=== PATIENT | male | born 1970 | race Caucasian/White ===

== ENCOUNTER 2017-09-13 12:12 | Day surgery (SDC) | payer OTHER, SELFPAY ==
--- NOTE | 2017-09-07 11:51 | EKG12_ITS ---
Test Reason : PRE OP Blood Pressure : / mmHG Vent. Rate : 082 BPM Atrial Rate : 082 BPM P-R Int : 162 ms QRS Dur : 076 ms QT Int : 330 ms P-R-T Axes : 008 036 030 degrees QTc Int : 385 ms Normal sinus rhythm Normal ECG Confirmed by LETTY MONTEZ ([id number]), greeting card editor RICO PARTIDA ([id number]) on 09/09/2017 12:10:44 PM Referred By: Devon Escobar Confirmed By:LETTY MONTEZ
[2017-09-07 12:49] LABS: Hemoglobin A1c 7.3 % (4.2-6.3)
[2017-09-07 13:11] LABS: Anion Gap 9 (5-15); BUN 8 mg/dL (7-18); BUN/Creat Ratio 8.3 RATIO (10-20); Calcium,Total 10.2 mg/dL (8.5-10.1); Chloride 110 mmol/L (98-107); Creatinine, Serum 0.96 mg/dL (0.70-1.30); EST Glomerular Filtration Rate 89 mL/min (>60); Est Glom Filt Rate - Afr Amer 108 mL/min (>60); Glucose 117 mg/dL (70-110); Sodium Level 144 mmol/L (136-145)
[2017-09-13] VITALS (8 sets, daily range): BP systolic 120–139; BP diastolic 79–87; PULSE 80–98; RESP 12–18; TEMP 36.6–36.7; O2SAT 92–98
[2017-09-13 13:01] LABS: Bedside Glucose 91 mg/dL (70-110)
--- NOTE | 2017-09-13 13:30 | HERN_PTH ---
PATIENT: GENNY CORDOVA LOC: [facility] – [place] U#:[id number] AGE/SX: 47/M ROOM: RE09/13/[address]: Dr. Devon Escobar MD : [id number] BED: DIS: 09/13/2017 SPEC #: [id number] RECD: 09/14/17 08:17 STATUS: JASVIR OTTO #: [id number] VITALY: 09/13/17 13:[address]: Devon Escobar DEPT: SURGICAL PATHOLOGY RECD BY: Davion Gill ENTERED: 09/14/17 12:31 SP TYPE: Hernia OTHR DR: Dr. Yong Correa DO Tissues: HERNIA Procedures: Surgery Specimen Level II HEADER OPERATION: Laparoscopic ventral hernia repair with mesh PRE-OP DIAGNOSIS: Ventral hernia TISSUE SUBMITTED: Hernia sac MICROSCOPIC DIAGNOSIS Hernia sac: A piece of adipose tissue, clinically hernia sac. SJ:cassandra 09/15/17 MICROSCOPIC DESCRIPTION Slides are reviewed. GROSS DESCRIPTION Received in fixative is one container labeled with the patient's name and designated hernia sac. The specimen consists of an irregular piece of yellow adipose tissue measuring 8.5 x 3.5 x 2 cm. Sections do not reveal any mass lesion. Plant Health Care Technician sections are submitted in one cassette. / SJ:cassandra 09/14/17 TC:5 CPT: 97331
[2017-09-13] MEDS: Cefazolin 2 GM in 0.9% Normal Saline 100 ML IV (14:30)
[2017-09-13] MEDS: Bupivacaine Mpf 0.5% 30 ML VIAL (15:31)
--- NOTE | 2017-09-13 15:39 | OP.PCM_ITS ---
Report of Operation Date of Procedure: 09/13/17 Pre-Operative Diagnosis: ventral hernia Post-Operative Diagnosis: ventral hernia - 1cm defect Surgery/Procedure Performed:: laparoscopic ventral hernia repair with mesh compensation advisor: None Type of Anesthesia:: General Anesthesiologist: Alfred James - ASA2 Specimen's removed: hernia sac Estimated Blood Loss (mL): <10 Fluids Replaced: 700 Description of Procedure: The patient was brought to the operating suite. Sign in was performed verifying patient, site, procedure, position, and DVT prophylaxis with SCDs. Patient received 2 g Ancef antibiotic prophylaxis. prior to the patient and brought to the operative suite, the hernia which was approximately 6 cm superior to the umbilicus was marked on the patient's skin and the patient concurred this was where the hernia was located. Following induction of general anesthetic, the patient?s abdomen was prepped and draped in the usual fashion. Timeout was performed verifying patient, site , position. Local anesthetic was injected . A linear incision was made and dissection carried down at the over the ventral hernia defect. The hernia sac and the hernia sac was opened . 2 stay sutures were placed and the Rollins trochar was inserted and secured with the stay sutures. 3- 5mm warts were placed in the far right lateral position There was omentum adherent within the hernia sac. This was dissected off the hernia sac and then dissected off the fascial defect margin . The hernia sac was dissected completely free from the subcutaneous fat down to the level of the fascial defect . Dissection of the hernia sac at the def rect level and then excess surrounding preperitoneal fat was dissected to allow flat placement of the intra-abdominal mesh. The falciform ligament was also divided to prevent tenting. The hernia sac tissue was excised and sent to pathology. A ventralex ST large cervical hernia mesh placed intra-abdominally. A Prolene suture was placed through the lower aspect of the mesh brought up with a Granee needle to just below the ventral fascial defect. Prolene sutures were placed transfixing the fascia at 12 , 6 , 3 and 9:00 using a Granee needle . The mesh was then tacked using a secure strap tacker around the outer rim of the mesh and then in multiple locations in the inner mesh Subcutaneous fat was closed with interrupted 3-0 Vicryl suture. Skin was closed with a running and inturrepted 4-0 Monocryl subcuticular sutures. Steri- Strips and bandages were applied. The patient was brought to recovery room in stable condition. Grafts/Implants Used: Ventralex ST [id number] Lot [id number] exp 01/10/2019 - securestrap STRAP 25 l - Admit VTE Documentation VTE Present on Admission: No VTE Mechan Device Prophylaxis: SCD's VTE Pharm Prophylaxis ordered?: No
--- NOTE | 2017-09-13 15:51 | DCINST_ITS ---
Discharge Diet: Light diet - advance as tolerated Discharge Activity: Return to Normal Activity, May Drive - when you are no longer taking narcotic pain medications., May Shower - with the bandage in place 1-2 days after surgery. Lifting Restrictions: 20 pounds for 8 weeks. Additional Activity Instructions:: Climbing stairs is fine, walking is encouraged. Sitting in bed may be uncomfortable. Sitting up using your lateral muscles (sitting up sideways) is usually more comfortable. Do not drive, work heavy equipment of sign legal documents for 24 hours. If your hernia repair was an ingunial repair, you may have scrotal swelling, an ice pack and/or athletic support can provide more comfort. Pain medications may cause nausea, you should typically eat light foods as you take your pain medications. Pain medications may also cause constipation. If you have difficulty with this, discuss with your doctor. Call your doctor if your incision/area has: Continuous Slow Oozing, Sudden Increased Bleeding, Increased Pain/ Swelling, Increased Redness, Foul Smelling Discharge Call your doctor if you observe: Fever of 101 or Higher Suture Line Care: Avoid Pulling/Pushing, Avoid Pinching/Bending Additional Dressing/Incision Instructions:: Leave the operative bandage on for 2 -3 days. When you remove the bandage, leave the steri-strips on place until your follow up appointment or they fall off. Allergies/Adverse Reactions: Allergies No Known Allergies Allergy (Verified 09/07/17 09:07) Medications to take at Discharge Esomeprazole Mag Trihydrate [Nexium] 20 mg PO DAILY 07/16/14 Lisinopril [Zestril] 10 mg PO DAILY 07/19/14 Metformin HCl [Glucophage] 1,000 mg PO BIDCM 07/19/14 Cholecalciferol (Vitamin D3) [Vitamin D3] 4,000 unit PO DAILY 09/07/17 Oxycodone [Oxyir] 5 mg PO Q4H PRN PRN #16 tab 09/13/17 The following prescriptions were given: Oxycodone [Oxyir] 5 mg PO Q4H PRN PRN #16 tab PRN Reason: Severe Pain (6-10/10) Primary Care Physician: Yong Correa DO [Primary Care Provider] - Please Follow Up With: Devon Escobar MD - [phone] When: Plan to have a follow up appointment in 7 days. Call to schedule.
[2017-09-13 16:06] LABS: Bedside Glucose 114 mg/dL (70-110)
[2017-09-13] MEDS: Ibuprofen 400 MG Tablet PO (17:30)
[2017-09-13] MEDS: oxyCODONE 5 MG Tablet PO (17:30)
[2017-09-13] MEDS: Ondansetron 4 MG/2 ML Vial IM (17:30)
== END 2017-09-13 18:17 | disposition home or self-care (01) ==
LOC: SDC 12:12 → AC 12:13
PROVIDERS: Family Provider Student in an Organized Health Care Education/Training Program; PCP Student in an Organized Health Care Education/Training Program; Visit Provider Surgery
PROC: 0WQF4ZZ Repair Abdominal Wall, Percutaneous Endoscopic Approach (ICD-10-PCS; CPT 49652; principal; 2017-09-13 13:15)
DX: K43.9 Ventral hernia without obstruction or gangrene (principal); K21.9 Gastro-esophageal reflux disease without esophagitis; E11.9 Type 2 diabetes mellitus without complications; I10 Essential (primary) hypertension; H53.50 Unspecified color vision deficiencies; Z87.442 Personal history of urinary calculi; Z79.4 Long term (current) use of insulin; Z79.51 Long term (current) use of inhaled steroids; Z79.899 Other long term (current) drug therapy; Z87.891 Personal history of nicotine dependence
CPT/HCPCS: 49652; 36415; 80048; 82962; 83036; 88302; 93005; J7120; C1781; J2405

== ENCOUNTER 2018-12-07 20:18 | Emergency (ER) | payer OTHER, SELFPAY ==
[2018-12-07 20:19] VITALS: BP 134/77; PULSE 102; RESP 17; O2SAT 95
[2018-12-07 20:20] VITALS: BP 134/77; PULSE 106; RESP 17; TEMP 36.7; O2SAT 95; BMI 32.4
--- NOTE | 2018-12-07 20:44 | RAD_ITS ---
STUDY: X-RAY - RIGHT SHOULDER REASON FOR EXAM: Male, 48 years old. Fall on concrete. TECHNIQUE: 4 view(s) of the shoulder. COMPARISON: None. FINDINGS: Normal glenohumeral articulation. Normal acromioclavicular joint. Normal acromion. Normal humeral head and visualized proximal humerus. The soft tissue structures are unremarkable. Normal visualized pulmonary apex. RAD/Shoulder min 2 Views IMPRESSION: Normal x-ray examination of the shoulder. Electronically Signed: Alexandra Buchanan MD at 21:19 EDT Tel , Service support ,
--- NOTE | 2018-12-07 22:37 | ED.DCSUM_ITS ---
History of Present Illness Chief Complaint: Upper Extremity Injury Narrative: Patient presenting secondary to a fall and shoulder injury. Patient reports that yesterday at work he was carrying something and tripped and struck his shoulder against a palate. He reports that he initially had minimal pain, but has had gradual onset of worsening pain. Pain is sharp and nonradiating. Is worse with range of motion of the shoulder. Denies any numbness or weakness. Denies any prior injuries to the shoulder. Review of systems otherwise negative. Past Medical History - Allergies and Home Meds Allergies/Adverse Reactions: Allergies Byatmcl-Rlk-Txo Reductase Inhibitor Adverse Reaction (Verified 12/07/18 20:19) Pain in joints Primary Care Physician: [facility] [GROUP OF PHYSICIANS] - As Needed Smoking Status: Never smoker Review of Systems Musculoskeletal: Reports: - - Right shoulder pain Skin: Denies: Wounds Neurological: Denies: Weakness, Parasthesia Hematologic: Denies: Easy bruising, Easy bleeding Physical Exam Vital Signs/Narrative: Vital Signs Temp Pulse Resp BP Pulse Ox 12/07/18 20:20 98.1 F 106 H 17 134/77 H 95 12/07/18 20:19 102 H 17 134/77 H 95 General: Well nourished, Well developed Head: Normocephalic Eyes: EOMI Neck: Full ROM Cardiovascular: Regular rate, Regular rhythm, - - 2+ radial pulses bilaterally symmetric Respiratory: No distress Back: Nontender Extremeties: Right upper extremity exam shows limited range of motion of the right shoulder secondary to pain. There is pain diffusely with palpation without any localization. No evidence of joint effusion warmth or erythema. Patient has pain with stressing of his rotator cuff specifically the subscapularis muscle, but no evidence of laxity. Normal distal sensation and pulses. Skin: Normal color, No rash Neurological: Alert, Oriented x3 Psychological: Normal affect Diagnostic/Tx/Re-eval - Medical Decision Making Patient presented secondary to a shoulder injury. X-rays were obtained which were found to be negative. Patient's mechanism really seems more consistent with a contusion at this point. Patient was recommended vnxv-snu-xgwskew remedies such as Tylenol ibuprofen and ice. [facility] Disposition: Home ED Disposition - Plan for ED Patient: Disposition: Home or Assisted Living Diagnosis: Contusion of right shoulder Instructions: ED Contusion Upper Ext [facility] [GROUP OF PHYSICIANS] - As Needed
[2018-12-07 22:43] VITALS: BP 148/90; PULSE 90; RESP 15; O2SAT 98
== END 2018-12-07 22:44 | disposition home or self-care (01) ==
PROVIDERS: Emergency Provider Emergency Medicine; Family Provider Student in an Organized Health Care Education/Training Program; PCP Student in an Organized Health Care Education/Training Program
DX: S40.011A Contusion of right shoulder, initial encounter (principal); W18.40XA Slipping, tripping and stumbling without falling, unspecified, initial encounter; Y93.01 Activity, walking, marching and hiking; Y92.89 Other specified places as the place of occurrence of the external cause; Y99.0 Civilian activity done for income or pay
CPT/HCPCS: 73030; 99282

== ENCOUNTER → 2019-01-25 | Outpatient (CLI) | payer OTHER, SELFPAY ==
[2019-01-12 15:49] VITALS: BMI 32.4
--- NOTE | 2019-01-25 17:25 | MRI_ITS ---
STUDY: MRI RIGHT SHOULDER REASON FOR EXAM: Shoulder pain since 12/06/2018, fall. TECHNIQUE: Standardized fat and water weighted pulse sequences were obtained in all 3 orthogonal planes. COMPARISON: Radiographs 12/07/2018. FINDINGS: There is mild supraspinatus tendinosis and a small full-thickness tear of the anterior supraspinatus tendon (T2 sagittal image 9; T2 axial image 9; T2 coronal image 16) measuring approximately 0.4 cm in length and width. Normal infraspinatus tendon. There is an undersurface partial-thickness tear of the distal superior fibers of the subscapularis tendon with medial subluxation of the proximal extracapsular long biceps tendon (proton-density axial image 15). Normal teres minor tendon. Normal supraspinatus muscle. Normal infraspinatus muscle. Normal subscapularis muscle. Normal teres minor muscle. There is a small glenohumeral joint effusion with fluid extending into the bicipital tendon sheath. Normal humeral head and visualized proximal humerus. Normal biceps labral complex. Normal labrum. Normal capsulo- ligamentous complex. Normal acromioclavicular articulation. There is a Type II morphology (curved), with a neutral orientation. There is a small volume of subacromial-subdeltoid bursal fluid. Normal visualized coracohumeral and coracoacromial ligaments. Normal deltoid muscle. Normal trapezius muscle. MRI/Upper Ext Joint Only(Routine) IMPRESSION: Small full-thickness tear and mild tendinosis of the supraspinatus tendon. Undersurface partial-thickness tear of the distal superior fibers of the subscapularis tendon with medial subluxation of the proximal extracapsular long biceps tendon. Glenohumeral joint fluid communicating with the subacromial-subdeltoid bursa. Electronically Signed: Alex Chandler MD at 8:21 EDT Tel , Service support ,
== END | disposition home or self-care (01) ==
LOC: MRI 17:21
PROVIDERS: Family Provider Student in an Organized Health Care Education/Training Program; PCP Student in an Organized Health Care Education/Training Program; Referring Provider Physician Assistant; Visit Provider Physician Assistant
DX: S40.011A Contusion of right shoulder, initial encounter (principal)
CPT/HCPCS: 73221

== ENCOUNTER 2019-04-13 15:30 | Outpatient (RCR) | payer OTHER, SELFPAY ==
[2018-12-15 16:12] VITALS: BMI 32.4
--- NOTE | 2018-12-21 16:15 | HP.PTEVAL_ITS ---
Patient's Visit Information GENNY CORDOVA is a 48 year old M referred to Physical Therapy by PHIL eWlsh with a diagnosis of contusion of R shoulder. Date of Evaluation: 12/21/18 Physical Therapist: ANAHI Abbott - Visit Plan Frequency: 3x /Week Duration: 4 Weeks Plan: 3X/ week for 4 weeks for R shoulder PROM, AAROM, AROM, stretching, strengthening, scapular and RC strength with HEP and modalities PRN for pain and inflammation. - Subjective Findings: Pt reports that he went inbetween 2 pallets and feet got tangled and he fell and landed on his R shoulder on the November. He went into [email or web address] and filled out paperwork and told them he did not want to go to the DR. Next day he could not do his normal job and his arm was not getting better and went to ER that night and took an x-ray and sent to [facility] the following day. At work he is making boxes and on light duty. Symptoms: aches and hurts. If he goes to lift his arm it hurts worse. He can not sleep on his R shoulder... if he rolls over onto it it hurts and can only sleep on it for maybe an hour. He fell on the posterior lateral shoulder.... it happened so fast. Pt is R handed. He has no N&T. His shoulder aches all the time and more with movmement. He reports some sharp pain if he raises his arm above his shoulder or if he tries to lift something. - Pain R shoulder pain Pain Intensity (Out of 10): 3 Pain Intensity Range: 10 Comment: with lifting - Objective R handed: AROM: R shoulder abd 94 degrees L WNL. R shoulder flex 95 degrees L WNL. R IR L5 L IR T 12. R ER 45 degrees L ER 55 degrees. UE MMT: R flex 3-/5 and L 4+/5, R abd 3-/5 and L 4+/5, R ER 4-/5 and L 4+/5, R ER 4-/5, L ER 4+/5. Posture: sits with very rounded shoulders and fw head posture. Bicep reflex 2+/3 B. Palpation: tender under the acromion and mid trap suprascapular area on the R shoulder. PROM R shoulder: Pt was very guarded but able to get pt to approx 150 degrees elebation flex/abd. Supine wand flex X 5 (pt was very uncomfortable doing that) - Goals Goal 1:: I HEP Goal Time Frame: 2-4 Weeks Goal 2:: Increase R shoulder AROM to 175 degrees elevation without any pain or difficulty. Goal Time Frame: 4-6 Weeks Goal 3:: Return to full duty without any pain at work Goal Time Frame: 4-6 Weeks Goal 4:: Sit with upright posture during treatment sessions Goal Time Frame: 4-6 Weeks Goal 5:: Increase R shoulder strength to 4/5 (flex, abd, ER and IR) Goal Time Frame: 4-6 Weeks - Rehabilitation Potential Rehabilitation Potential: Good - Anticipated Interventions Patient/Client Instruction: Educate patient on: Condition, Plan of Care For the Purpose of:: To decrease pain, To decrease swelling/inflammation, To increase ROM, To improve nutrient delivery to tissue, To improve muscle performance and motor function, To improve ability to perform ADL's, To increase tolerance to activity/condition/position, To improve performance and independence with ADL's, To decrease level of supervision to perform tasks, To improve ability of physical actions for home/community/work/leisure, To improve health of tissue, To decrease soft tissue restriction, To increase flexibility/ROM Therapeutic Exercise to Include: Strength training, Body mechanics, Postural training, Flexibilty training, Passive ROM, Active ROM, Scapular Strength/Stabilization For the Purpose of:: To decrease pain, To decrease swelling/inflammation, To increase ROM, To improve nutrient delivery to tissue, To improve muscle performance and motor function, To improve ability to perform ADL's, To increase tolerance to activity/condition/position, To improve performance and independence with ADL's, To decrease level of supervision to perform tasks, To improve ability of physical actions for home/community/work/leisure, To improve health of tissue, To decrease soft tissue restriction, To increase flexibility/ROM Manual Therapy Techniques to Include: Passive ROM For the Purpose of:: To increase ROM, To improve nutrient delivery to tissue IF ES: Yes Cryotherapy (ice pack, ice massage): Yes Thermo therapy (hot pack): Yes Ultrasound (thermal/non thermal): Yes For the Purpose of:: To decrease pain, To decrease swelling/inflammation, To increase ROM, To improve nutrient delivery to tissue Thank you for the opportunity to evaluate your patient. For Medicare and Medicare HMO plans, please review the plan of care and approve it. It will need to be FAXED BACK to us at [phone] for Medicare purposes. For Medicare only, by signing this I certify the plan of care. Please let me know if there are questions or concerns regarding this plan of care. Physician S ignature: Date:
--- NOTE | 2019-03-15 15:57 | HP.PTREVAL ---
PHIL Welsh, It has been my pleasure to treat GENNY CORDOVA over the last 7 visits for contusion of R shoulder. Please see the progress note below for an update on the physical therapy plan of care! Subjective: 02/20/19 Had an injection. No change since the injection. Patient reports that he is a 3-4/10 pain currently but at night it shoots to a 10/10 not sleeping and is miserable. 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 Pain is located along the shoulder and sharp shooting from back and comes around. No radiating down the arm- no N/T. No blurred vision but does have increased ERVIN- few times a week. Right hand dominate. Has an apt on Mar 30 at the [facility]. Objective/Function: Posture: Fh, RS, increased kyphosis- guarding of the right UE- given vC and tactile cues he is unable to correct and reports pain. Gait: decreased trunk rotation and arm swing. Palpation:tender along medial border of the scapula, upper trap and along the bicipital groove to the tip of the acromion- tender to the lightest touch. AROM: flexion: 100 degrees, Abd: 90 degrees, Ir: L4, ER: 65 degrees with pain at end ranges of all motions, Cervical spine/Elbow/Wrist/Hand: WFL. Strength: Elbow: 4-/5 with pain, Shoulder in isometric 90/90 position: 4-/5 throughout available range with pain. Equal Employment Opportunity Officer Strength: Left: 110, 120, 110, Right: 95, 100, 90 Plan Plan: 2x a week for 4 weeks progress towards goals- Focus on ROM, strength and muscular endurance with modalities as needed for pain control Goals Goal 1:: I HEP Goal Time Frame: 2-4 Weeks Goal 2:: Increase R shoulder AROM to 175 degrees elevation without any pain or difficulty. Goal Time Frame: 4-6 Weeks Goal Progress: Not Progressing Goal 3:: Return to full duty without any pain at work Goal Time Frame: 4-6 Weeks Goal Progress: Not Progressing Goal 4:: Sit with upright posture during treatment sessions Goal Time Frame: 4-6 Weeks Goal Progress: Not Progressing Goal 5:: Increase R shoulder strength to 4/5 (flex, abd, ER and IR) Goal Time Frame: 4-6 Weeks Goal Progress: Not Progressing Anticipated Interventions Patient/Client Instruction: Educate patient on: Condition, Plan of Care For the Purpose of:: To decrease pain, To decrease swelling/inflammation, To increase ROM, To improve nutrient delivery to tissue, To improve muscle performance and motor function, To improve ability to perform ADL's, To increase tolerance to activity/condition/position, To improve performance and independence with ADL's, To decrease level of supervision to perform tasks, To improve ability of physical actions for home/community/work/leisure, To improve health of tissue, To decrease soft tissue restriction, To increase flexibility/ROM Therapeutic Exercise to Include: Strength training, Body mechanics, Postural training, Flexibilty training, Passive ROM, Active ROM, Scapular Strength/Stabilization For the Purpose of:: To decrease pain, To decrease swelling/inflammation, To increase ROM, To improve nutrient delivery to tissue, To improve muscle performance and motor function, To improve ability to perform ADL's, To increase tolerance to activity/condition/position, To improve performance and independence with ADL's, To decrease level of supervision to perform tasks, To improve ability of physical actions for home/community/work/leisure, To improve health of tissue, To decrease soft tissue restriction, To increase flexibility/ROM Manual Therapy Techniques to Include: Passive ROM For the Purpose of:: To increase ROM, To improve nutrient delivery to tissue IF ES: Yes Cryotherapy (ice pack, ice massage): Yes Thermo therapy (hot pack): Yes Ultrasound (thermal/non thermal): Yes For the Purpose of:: To decrease pain, To decrease swelling/inflammation, To increase ROM, To improve nutrient delivery to tissue Please do not hesitate to contact me at [phone] by phone or if you have questions or concerns regarding this new plan of care! Sincerely, DERICK AbarcaT
--- NOTE | 2019-04-13 15:53 | HP.PTDCSUM ---
HP - PT D/C Summary It has been my pleasure to treat GENNY CORDOVA under orders from PHIL Welsh, for the diagnosis of contusion of R shoulder for a total of 14 visit(s). Discharge Date: Please see the following information for a summary of their discharge status. - Subjective Subjective: Patient reports [facility] to [facility] today at [facility]:30 and scheduled a surgeon on Spe. No significant changes in the shoulder. Can do light duty but not able to do heavy tasks. Sleeping is still terrible. Worst: 10/10 mostly the throbbing and achy pain. - Pain R shoulder pain Pain Intensity (Out of 10): 3 - Overall Improvement % Improvement: 0 - Objective Objective/Function: Posture: Fh, RS, increased kyphosis- guarding of the right UE- given vC and tactile cues he is unable to correct and reports pain. Gait: decreased trunk rotation and arm swing. Palpation:tender along medial border of the scapula, upper trap and along the bicipital groove to the tip of the acromion- tender to the lightest touch. AROM: flexion: 120 degrees, Abd: 90 degrees, Ir: L4, ER: 65 degrees with pain at end ranges of all motions, Cervical spine/Elbow/Wrist/Hand: WFL. Strength: Elbow: 4-/5 with pain, Shoulder in isometric 90/90 position: 4-/5 throughout available range with pain. No significant changes since initial IE - Goals Goal 1:: I HEP Goal Progress: Goal Met Goal 2:: Increase R shoulder AROM to 175 degrees elevation without any pain or difficulty. Goal Progress: Not Progressing Goal 3:: Return to full duty without any pain at work Goal Progress: Not Progressing Goal 4:: Sit with upright posture during treatment sessions Goal Progress: Not Progressing Goal 5:: Increase R shoulder strength to 4/5 (flex, abd, ER and IR) Goal Progress: Not Progressing - Plan Plan: Return to MD for further evaluation- discharge from PT - D/C Information If there are questions or concerns regarding this patient's physical therapy, please feel free to call me at [phone]. Thank you for the referral of this patient. Sincerely, Leatha Teixeira DPT
== END 2019-04-13 19:00 | disposition home or self-care (01) ==
LOC: PT 15:30
PROVIDERS: Family Provider Student in an Organized Health Care Education/Training Program; PCP Student in an Organized Health Care Education/Training Program; Referring Provider Physician Assistant; Visit Provider Physician Assistant
DX: S40.011D Contusion of right shoulder, subsequent encounter (principal)
CPT/HCPCS: 97014; 97110; 97161; 97164; G0283

== ENCOUNTER 2019-07-19 07:28 | Day surgery (SDC) | payer OTHER, SELFPAY ==
--- NOTE | 2019-06-22 01:19 | HP_ITS ---
I have re-examined the patient. There are no clinical changes since date of exam. Intake Vital Signs 06/22/19 Body Mass Index (BMI) 32.4 Intake Visit Reasons: right shoulder Is patient in pain?: Yes Allergies Dbevsad-Jgn-Edt Reductase Inhibitor Adverse Reaction (Verified 06/22/19 12:41) Pain in joints [facility] Medical History (Updated 04/24/19 @ 15:32 by Rizwana Maciel) Asthma (Acute) Diabetes (Acute) GERD (gastroesophageal reflux disease) (Acute) History of kidney stones (Acute) HTN (hypertension) (Chronic) Surgical History (Updated 12/08/18 @ 01:22 by Mihir Griffin MD) History of hernia repair (Acute) Family History (Updated 10/11/17 @ 09:48 by Rut Cancino) Other Cancer Social History (Updated 06/22/19 @ 13:19 by Arianna Andrews DO) Smoking Status: Never smoker alcohol intake: never substance use type: does not use what type of physical activity do you participate in: none HPI right shoulder: Surgical H&P: Yes Details: Parts of this documentation were recorded by a scribe, this documentation accurately reflects the service provided and the decisions made by me, Arianna Andrews DO 06/22/19 1236. GENNY CORDOVA is a 48 year old M here today for a followup on his right shoulder pain. Patient states that he continues to have right shoulder pain over his entire shoulder. He has good range of motion although it is painful. He states that his approved for biceps tendinitis got approved. He would like to discuss the next step. states pain with overhead lifiting, otc antiinflammatories not helpful ROS Musc Reports joint pain, Reports limited joint movement Skin/Breast Reports system reviewed and no additional complaints, except as docu Neuro Yes system reviewed and no additional complaints, except as docu Ortho Exam Right Shoulder Contralateral Normal: Yes Testing: Positive Hawkin's, TTP Biceps, PROM-External Rotation at side 0-60 (weakness ) and empty can Internal Rotation: L3 No rales rhonchi wheezing, no abdominal pain, no audible bruits Assessment & Plan Problems 1. Subluxation of tendon of long head of biceps S46.119A 2. Rupture of right supraspinatus tendon S46.011A Plan Explained that with the approvals we can proceed with request for surgery for rotator cuff repair and biceps tenodesis vs tenotomy. Reviewed the post op restrictions and the difference in ways to repair the biceps. Reviewed the pre-operative plans with the patient. Risks and benefits of the procedure were fully explained, including but not limited to infection, neurovascular injury, continued pain, arthritis, stiffness, need for further surgery, re-injury, DVT, PE, general risks of anesthesia, and loss of limb or life. The patient understands all the risks and does wish to proceed with written consent. Follow up in or sooner if pain, swelling, numbness or associated symptoms, or concerns develop. All questions answered. Patient in agreement of plan. Plan Detail Goals Decrease pain and inflammation Coding Level of Care Code Off vis,est,level 4 Diagnoses Subluxation of tendon of long head of biceps S46.119A Rupture of right supraspinatus tendon S46.011A 06/22/19 9699 <Electronically signed by Arianna mc DO> Date _ Arianna Andrews DO
[2019-06-22 12:41] VITALS: BMI 32.4
[2019-07-19] VITALS (8 sets, daily range): BP systolic 123–149; BP diastolic 78–91; PULSE 88–105; RESP 16–18; TEMP 36–36.5; O2SAT 92–95; BMI 31.0
--- NOTE | 2019-07-19 07:33 | EKG12_ITS ---
Test Reason : PRE OP Blood Pressure : / mmHG Vent. Rate : 102 BPM Atrial Rate : 102 BPM P-R Int : 160 ms QRS Dur : 072 ms QT Int : 312 ms P-R-T Axes : 006 047 022 degrees QTc Int : 406 ms Sinus tachycardia Otherwise normal ECG When compared with ECG of 07-SEP-2017 12:03, No significant change was found Confirmed by LETTY MONTEZ ([id number]), film and video editor RICO PARTIDA ([id number]) on 07/23/2019 10:44:02 AM Referred By: Arianna Andrews Confirmed By:LETYT MONTEZ
[2019-07-19] MEDS: Lactated Ringers 1,000 ML 100 ML IV (07:59)
[2019-07-19 08:02] LABS: Anion Gap 7 (5-15); BUN 15 mg/dL (7-18); BUN/Creat Ratio 16.4 RATIO (10-20); Calcium,Total 10.5 mg/dL (8.5-10.1); Chloride 108 mmol/L (98-107); Creatinine, Serum 0.91 mg/dL (0.70-1.30); EST Glomerular Filtration Rate 94 mL/min (>60); Est Glom Filt Rate - Afr Amer 114 mL/min (>60); Estimated Creatinine Clearance 100.35 ml/min; Glucose 169 mg/dL (74-106); Potassium 4.5 mmol/L (3.5-5.1); Sodium Level 141 mmol/L (136-145)
[2019-07-19 08:07] LABS: Hemoglobin A1c 9.9 % (4.2-6.3)
[2019-07-19 08:21] LABS: Bedside Glucose 162 mg/dL (70-110)
[2019-07-19] MEDS: Cefazolin 2 GM in 0.9% Normal Saline 100 ML IV (11:00)
[2019-07-19] MEDS: Mupirocin Ointment 22gm Tube 1 APPLIC (14:14)
[2019-07-19] MEDS: Epinephrine (1 mg/ml) 1 MG/ML VIAL (14:14)
[2019-07-19 14:50] LABS: Bedside Glucose 169 mg/dL (70-110)
--- NOTE | 2019-07-19 15:11 | DCINST_ITS ---
Discharge Diet: No Restrictions - remove dressing in 5 days and apply bandaids to incision sites, call with increased pain or if issues arise, no active motion of elbow or shoulder, may shower after 5 days and get incision wet at that time Discharge Activity: May Not Drive May shower in (days): 1 Ice area for (Minutes): 20 - Every hour while awake. Weight Bearing Status: Weight bearing as tolerated Keep extremity elevated above heart level: Operative Extremity Call your doctor if your incision/area has: Continuous Slow Oozing, Sudden Increased Bleeding, Increased Pain/ Swelling, Increased Redness, Foul Smelling Discharge Call your doctor if you observe: Fever of 101 or Higher, Coldness, Increased Pain, Numbness or Tingling, Change in Color, Calf discomfort Allergies/Adverse Reactions: Allergies Xrliprm-Gly-Ynb Reductase Inhibitor Adverse Reaction (Verified 07/19/19 07:47) Pain in joints Medications to take at Discharge Lisinopril [Zestril] 10 mg PO DAILY 07/19/14 metFORMIN HCl [Glucophage] 1,000 mg PO BIDCM 07/19/14 Cholecalciferol (Vitamin D3) [Vitamin D3] 4,000 unit PO DAILY 09/07/17 canagliflozin 300 mg tablet 300 mg PO DAILY 12/08/18 cyclobenzaprine 10 mg tablet 10 mg PO HS PRN #20 tab 12/15/18 Insulin Glargine [Lantus (BKC)] 42 units SUBCUT QHS 07/17/19 Liraglutide [Victoza] 1.8 mg SQ DAILY 07/17/19 Naproxen 500 mg PO PRN PRN 07/17/19 Omeprazole [Prilosec] 20 mg PO DAILY 07/17/19 Oxycodone HCl/Acetaminophen [Percocet 5/325] 1 - 2 tab PO Q6H PRN PRN 5 Days #28 tab 07/19/19 The following prescriptions were given: Oxycodone HCl/Acetaminophen [Percocet 5/325] 1 - 2 tab PO Q6H PRN PRN 5 Days #28 tab PRN Reason: Pain Transmission Status: Sent to [facility] Primary Care Physician: Yong Correa DO [Primary Care Provider] - Test Results: Test results from this visit will be discussed in further detail at your follow- up appointment, if applicable. Please Follow Up With: Arianna Andrews DO - [phone]
--- NOTE | 2019-07-19 15:12 | OP.PCM_ITS ---
Report of Operation Date of Procedure: 07/19/19 Pre-Operative Diagnosis: right shoulder rotator cuff tear, biceps tendinosis, impingment syndrome Post-Operative Diagnosis: same Surgery/Procedure Performed:: sars, rc repair, sad/open biceps tenodesis geographic analyst: Jt Davenport Type of Anesthesia:: General Anesthesiologist: Antonio Arredondo Estimated Blood Loss (mL): none Fluids Replaced: 1400cc lr Description of Procedure: Preop note Patient is a 48-year-old male with diabetes his hemoglobin A1c was almost 10 we discussed risks and benefits the fact that his hemoglobin is so high increased risk for failure and infection. Family is aware would still like to proceed with right shoulder arthroscopy. MRI confirms rotator cuff tear as well as a subluxation of his biceps tendon. Risk benefits and alternatives surgery discussed with patient. Risks including but not limited to blood loss, blood clot, infection, neurovascular, failure procedure, loss of life and loss of limb. Patient is aware would like proceed with right shoulder arthroscopy repair as indicated. Operative note Patient seen and examined preoperative holding area. Right shoulder was marked. Patient brought to the operating placed supine the operating table. Sign, anesthesia, antibiotics were administered. Patient placed supine on the table and was placed in beachchair positioning skilled nursing through we did recheck his blood pressure which was stable throughout. All bony prominences well-padded SCDs placed on his bilateral lower extremity. We then prepped and draped the right arm in usual sterile fashion. We marked our bony landmarks and our portal placement. The glenohumeral joint was insufflated with 60 cc from the posterior portal. We had good return. We then created 11 created our posterior portal with an 11 blade after timeout was performed. We visualized the glenohumeral joint. There was an anterior supraspinatus complete tear off of the footprint extending laterally. The clinical joint was intact the inferior recess had no loose bodies we then created an anterior portal under direct visualization. The biceps tendon was unstable and had subluxed the subscap was torn off of its superior margin. We then used a swivel lock to repair the subscap after releasing it both anteriorly and posteriorly and then creating a bloody bed at the lateral level of the lesser tuberosity. Again we placed a swivel lock placed the tendon back and at that point we did have better coverage of our lesser tuberosity footprint. We released the biceps tendon at that point as well. We then moved to the subacromial space. Created anterior portal and on the lateral side we created a lateral portal under direct visualization. There is extensive bursitis throughout we resected this with a shaver. We also performed an acromioplasty just impinging on the rotator cuff. We then moved to her repair. The entire anterior leading edge of the supraspinatus was torn off and retracted posteriorly. We debrided the bed made for medial row by a 5 5 composite Arthrex anchor. This was placed we then placed with a double loaded suture placed all 4 sutures through the tear and then brought the tendon back to the anchor we had good coverage that point however we did also place a swivel lock for a lateral row for further better to better coverage. We then irrigated the subacromial space with copious amounts of sterile saline. And then we moved to our open biceps tenodesis. Tender incision just inferior to the pec ins ertion. Made a vertical incision starting just inferior to the pec insertion. Extended about 2 and half centimeters. Dissected down tenotomies to level of the biceps tendon. We attempted to pull the biceps tendon out however it seemed to be attached proximally at the site of the repair which would be consistent with our anterior repair. We attempted to bring the biceps out of the incision however due to the nature of our anterior. The thought was that we could capture the biceps tendon with 1 of her anchors intra-articularly and then we performed an in situ biceps tenodesis. This was done using our pec button and suture #2 fiberwire. We then irrigated the incision with copious muscle sterile saline closed with 2-0 Vicryl and a 4-0 running Monocryl the portals were closed with 4-0 nylon. Sterile dressings were applied and placed the patient was placed in a sling. Patient tired procedure well no complication transferred recovery room stable condition. Operative note Nonweightbearing right upper extremity Pharmacy has prescription Call with increased pain numbness tingling further issues arise Discussed with We will give pictures in 2 weeks Dragon disclaimer This note was generated with Geewa dictation software. It may contain incorrect words, spelling, and punctuation that were not noted in checking the note before signing.
[2019-07-19] MEDS: HYDROcodone Bitartrate/Apap 5/325 Tablet PO (16:22)
== END 2019-07-19 18:16 | disposition home or self-care (01) ==
LOC: SDC 07:29 → AC 08:02
PROVIDERS: Anesthesiology; Family Provider Student in an Organized Health Care Education/Training Program; PCP Student in an Organized Health Care Education/Training Program; Referring Provider Orthopaedic Surgery; Visit Provider Orthopaedic Surgery
PROC: (CPT 29827; principal; 2019-07-19 09:15)
DX: S46.111A Strain of muscle, fascia and tendon of long head of biceps, right arm, initial encounter (principal); S46.011A Strain of muscle(s) and tendon(s) of the rotator cuff of right shoulder, initial encounter; M25.811 Other specified joint disorders, right shoulder; E11.9 Type 2 diabetes mellitus without complications; K21.9 Gastro-esophageal reflux disease without esophagitis; I10 Essential (primary) hypertension; Z87.442 Personal history of urinary calculi; Z79.4 Long term (current) use of insulin; Z79.899 Other long term (current) drug therapy; X58.XXXA Exposure to other specified factors, initial encounter; Y93.89 Activity, other specified; Y92.89 Other specified places as the place of occurrence of the external cause; Y99.8 Other external cause status
CPT/HCPCS: 01716; 24340; 29827; 36415; 80048; 82962; 83036; 93005; J7120; A4216; C1713; J2405

== ENCOUNTER 2020-02-02 10:00 | Outpatient (RCR) | payer OTHER, SELFPAY ==
[2019-08-03 08:38] VITALS: BMI 31.0
--- NOTE | 2019-08-11 10:53 | HP.PTEVAL_ITS ---
Patient's Visit Information GENNY CORDOVA is a 49 year old M referred to Physical Therapy by PHIL Duron with a diagnosis of R shoulder rot cuff repair 07/19/19. Date of Evaluation: 08/11/19 Physical Therapist: Moises De La Garza PT, ATC - Visit Plan Frequency: 2-3x /Week Duration: 4-6 Weeks Plan: Phase 1 rotator cuff protocal for 3 weeks, then progress to phase 2 - Subjective Findings: DOS: 07/19/19. Pt had a R rotator cuff repair as well as a biceps tenodesis performed at that time. Pt reports he was injured at work on 12/06/18 when he had to lift an object at work and then fell landing with his R shoulder hitting a pallet. Pt reports he immediately experienced severe R shoulder pain. Pt reports he had PT for this after the injury, but the pain never got better. Pt reports he finally had the surgery performed. Pt reports he is in a lot of pain still at this time. Pt is R hand dominant. No tingling or numbness in R UE. Pt reports sleep difficulty at this time secondary to pain. Pt has to be able to ligft 70# in order to perform his job. 4/10 pain at rest, 10/10 pain at worst over last few days. - Pain R shoulder Pain Intensity (Out of 10): 4 Pain Intensity Range: 10 - Objective Neuro: B UE sensation is WNL to light touch. Observation: Incisions healing well. No signs of infection. ROM: L shoulder flex= 155, abd= 155, ER= 50, IR= WNL; R shoulder PROM flex and abd= 70 degrees. MMT: L shoulder 5/5 throughout - Goals Goal 1:: Decrease R shoulder pain x 50% to aid with sleep Goal Time Frame: 4-6 Weeks Goal 2:: Increase R shoulder flex and abd ROM x 40 degrees to aid with overhead lifting Goal Time Frame: 4-6 Weeks Goal 3:: Increase R shoulder pstrength x 1 grade to aid with RTW Goal Time Frame: 4-6 Weeks Goal 4:: I with HEP Goal Time Frame: 4-6 Weeks - Rehabilitation Potential Physical Therapy Diagnosis: R shoulder pain, weakness, and limited ROM secondary to R rot cuff repair Rehabilitation Potential: Good - Anticipated Interventions Patient/Client Instruction: Educate patient on: Condition, Plan of Care For the Purpose of:: To improve self management Therapeutic Exercise to Include: Strength training, Endurance training, Postural training, Flexibilty training, Passive ROM, Active ROM, Scapular Strength/Stabilization For the Purpose of:: To decrease pain, To increase ROM, To improve muscle performance and motor function Cryotherapy (ice pack, ice massage): Yes For the Purpose of:: To decrease pain Thank you for the opportunity to evaluate your patient. For Medicare and Medicare HMO plans, please review the plan of care and approve it. It will need to be FAXED BACK to us at [phone] for Medicare purposes. For Medicare only, by signing this I certify the plan of care. Please let me know if there are questions or concerns regarding this plan of care. Physician Sign ature: Date:
--- NOTE | 2019-09-29 11:02 | HP.PTREVAL ---
PHIL Duron, It has been my pleasure to treat GENNY CORDOVA over the last 20 visits for R shoulder rot cuff repair 07/19/19. Please see the progress note below for an update on the physical therapy plan of care! Subjective: Pt reports mild pain this date Objective/Function: R shoulder pain ranges from 3-7/10. R shoulder ROM: flex= 95, abd= 80, ER= 40. R shoulder MMT: 3-/5 throughout. Pt is progressing toward Rx goals but shows a need for skilled strengthening and stretching at this time Plan Plan: Continue per plan of care. Goals Goal 1:: Decrease R shoulder pain x 50% to aid with sleep Goal Time Frame: 4-6 Weeks Goal Progress: Progressing Goal 2:: Increase R shoulder flex and abd ROM x 40 degrees to aid with overhead lifting Goal Time Frame: 4-6 Weeks Goal Progress: Progressing Goal 3:: Increase R shoulder strength x 1 grade to aid with RTW Goal Time Frame: 4-6 Weeks Goal Progress: Progressing Goal 4:: I with HEP Goal Time Frame: 4-6 Weeks Goal Progress: Progressing Anticipated Interventions Patient/Client Instruction: Educate patient on: Condition, Plan of Care For the Purpose of:: To improve self management Therapeutic Exercise to Include: Strength training, Endurance training, Postural training, Flexibilty training, Passive ROM, Active ROM, Scapular Strength/Stabilization For the Purpose of:: To decrease pain, To increase ROM, To improve muscle performance and motor function Cryotherapy (ice pack, ice massage): Yes For the Purpose of:: To decrease pain Please do not hesitate to contact me at [phone] by phone or if you have questions or concerns regarding this new plan of care! Sincerely, Moises De La Garza, PT, ATC
--- NOTE | 2019-10-11 09:35 | HP.PTREVAL ---
PHIL Duron, It has been my pleasure to treat GENNY CORDOVA over the last 24 visits for R shoulder rot cuff repair 07/19/19. Please see the progress note below for an update on the physical therapy plan of care! Subjective: Pt reports pain is still sore at times Objective/Function: R shoulder pain ranges from 2-8/10. R shoulder ROM: flex= 80, abd= 80, ER= 40. R shoulder MMT: Not tested secondary to state of recovery Plan Plan: Cont to progress to strengthening once new c-9 is approved Goals Goal 1:: Decrease R shoulder pain x 50% to aid with sleep Goal Time Frame: 4-6 Weeks Goal Progress: Progressing Goal 2:: Increase R shoulder flex and abd ROM x 40 degrees to aid with overhead lifting Goal Time Frame: 4-6 Weeks Goal Progress: Progressing Goal 3:: Increase R shoulder strength x 1 grade to aid with RTW Goal Time Frame: 4-6 Weeks Goal Progress: Progressing Goal 4:: I with HEP Goal Time Frame: 4-6 Weeks Goal Progress: Progressing Anticipated Interventions Patient/Client Instruction: Educate patient on: Condition, Plan of Care For the Purpose of:: To improve self management Therapeutic Exercise to Include: Strength training, Endurance training, Postural training, Flexibilty training, Passive ROM, Active ROM, Scapular Strength/Stabilization For the Purpose of:: To decrease pain, To increase ROM, To improve muscle performance and motor function Cryotherapy (ice pack, ice massage): Yes For the Purpose of:: To decrease pain Please do not hesitate to contact me at [phone] by phone or if you have questions or concerns regarding this new plan of care! Sincerely, Moises De La Garza, PT, ATC
--- NOTE | 2019-11-29 10:57 | HP.PTREVAL ---
PHIL Duron, It has been my pleasure to treat GENNY CORDOVA over the last 36 visits for R shoulder rot cuff repair 07/19/19. Please see the progress note below for an update on the physical therapy plan of care! Subjective: Minor pain this date Objective/Function: R shoulder pain 2/10, increases to 6/10 at worst. R shoulder MMT: 4-/5 throughout. R shoulder AROM: flex= 110, abd= 85, ER= 30 degrees. Pt is progressing towards Rx goals but demonstrates need for continued skilled PT for strength and ROM Plan Plan: Attempt to get 12 more visits approved Goals Goal 1:: Decrease R shoulder pain x 50% to aid with sleep Goal Time Frame: 4-6 Weeks Goal Progress: Progressing Goal 2:: Increase R shoulder flex and abd ROM x 40 degrees to aid with overhead lifting Goal Time Frame: 4-6 Weeks Goal Progress: Progressing Goal 3:: Increase R shoulder strength x 1 grade to aid with RTW Goal Time Frame: 4-6 Weeks Goal Progress: Progressing Goal 4:: I with HEP Goal Time Frame: 4-6 Weeks Goal Progress: Progressing Anticipated Interventions Patient/Client Instruction: Educate patient on: Condition, Plan of Care For the Purpose of:: To improve self management Therapeutic Exercise to Include: Strength training, Endurance training, Postural training, Flexibilty training, Passive ROM, Active ROM, Scapular Strength/Stabilization For the Purpose of:: To decrease pain, To increase ROM, To improve muscle performance and motor function Cryotherapy (ice pack, ice massage): Yes For the Purpose of:: To decrease pain Please do not hesitate to contact me at [phone] by phone or if you have questions or concerns regarding this new plan of care! Sincerely, Moises De La Garza, PT, ATC
--- NOTE | 2019-12-28 11:01 | HP.PTREVAL ---
PHIL Duron, It has been my pleasure to treat GENNY CORDOVA over the last 48 visits for R shoulder rot cuff repair 07/19/19. Please see the progress note below for an update on the physical therapy plan of care! Subjective: I am just a little sore today Objective/Function: R shoulder pain ranges from 2-7/10. R shoulder ROM: flex= 100, abd= 110, ER= 40, IR is minimally limited. R shoulder MMT: 4-/5 throughout and still painful with all testing. R shoulder ROM and pain are improving, pt still needs skilled therapy to focus on strengthening and ROM Plan Plan: Attempt to get 12 more PT visits appoved for ROM and strengthening. Await new c-9 to continue with PT Goals Goal 1:: Decrease R shoulder pain x 50% to aid with sleep Goal Time Frame: 4-6 Weeks Goal Progress: Progressing Goal 2:: Increase R shoulder flex and abd ROM x 40 degrees to aid with overhead lifting Goal Time Frame: 4-6 Weeks Goal Progress: Progressing Goal 3:: Increase R shoulder strength x 1 grade to aid with RTW Goal Time Frame: 4-6 Weeks Goal Progress: Progressing Goal 4:: I with HEP Goal Time Frame: 4-6 Weeks Goal Progress: Progressing Anticipated Interventions Patient/Client Instruction: Educate patient on: Condition, Plan of Care For the Purpose of:: To improve self management Therapeutic Exercise to Include: Strength training, Endurance training, Postural training, Flexibilty training, Passive ROM, Active ROM, Scapular Strength/Stabilization For the Purpose of:: To decrease pain, To increase ROM, To improve muscle performance and motor function Cryotherapy (ice pack, ice massage): Yes For the Purpose of:: To decrease pain Please do not hesitate to contact me at [phone] by phone or if you have questions or concerns regarding this new plan of care! Sincerely, Moises De La Garza, PT, ATC
--- NOTE | 2020-02-02 14:28 | HP.PTREVAL_ITS ---
PHIL Duron, It has been my pleasure to treat GENNY CORDOVA over the last 60 visits for R shoulder rot cuff repair 07/19/19. Please see the progress note below for an update on the physical therapy plan of care! Subjective: Pt. seen for the second half of his PT session. Pt. reports making progress over the past weeks. Pt. reprots being 75% better overall. Pt. reports being able to do some house work, but has sorenesss for ~24 hours. Pt. is not yet back to work, as he has been cleared for 4 hour increments, but reports that his job can not accomidate this restriction. Objective/Function: R shoulder ROM: PROM full throughout, mild incerase in symptoms with end range flexion and abd. AROM: R shoulder- flexion 170deg nicole rrant motion noted, abd 170deg aberrant motion noted, functional ER C6, functional IR L2. MMT: PT. has 4/5 throughout deltiod, ER/IR in mid range 5-/5. biceps and triceps 5/5 throughout. Pt. is doing well overall. He still has some strength limitations with over head motions, but has good strength in mid ranges. We have him working on scapular and deltoid strengtheing I/T/Ys; functional strengthening as well. He has not returned to work yet due to reprots of his work not being able to accomidate his hour restrictions. Plan Plan: Pt. would benefit from PT to further work on over head, job related strengthening. I am sending this recommendation and note to his physcian this date. Goals Goal 1:: Decrease R shoulder pain x 50% to aid with sleep Goal Time Frame: 4-6 Weeks Goal Progress: Goal Met Goal 2:: Increase R shoulder flex and abd ROM x 40 degrees to aid with overhead lifting Goal Time Frame: 4-6 Weeks Goal Progress: Goal Met Goal 3:: Increase R shoulder strength x 1 grade to aid with RTW Goal Time Frame: 4-6 Weeks Goal Progress: Progressing Goal 4:: I with HEP Goal Time Frame: 4-6 Weeks Goal Progress: Goal Met Anticipated Interventions Patient/Client Instruction: Educate patient on: Condition, Plan of Care For the Purpose of:: To improve self management Therapeutic Exercise to Include: Strength training, Endurance training, Postural training, Flexibilty training, Passive ROM, Active ROM, Scapular Strength/Stabilization For the Purpose of:: To decrease pain, To increase ROM, To improve muscle performance and motor function Cryotherapy (ice pack, ice massage): Yes For the Purpose of:: To decrease pain Please do not hesitate to contact me at [phone] by phone or if you have questions or concerns regarding this new plan of care! Sincerely, DERICK RazoT
--- NOTE | 2020-02-05 15:41 | HP.PTDCSUM ---
It has been my pleasure to treat GENNY CORDOVA referred by PHIL Duron, with the diagnosis of R shoulder rot cuff repair 07/19/19 for a total of 60 visit(s). Discharge Date: Please see the following information for a summary of their discharge status. Subjective: Pt. seen for the second half of his PT session. Pt. reports making progress over the past weeks. Pt. reprots being 75% better overall. Pt. reports being able to do some house work, but has sorenesss for ~24 hours. Pt. is not yet back to work, as he has been cleared for 4 hour increments, but reports that his job can not accomidate this restriction. R shoulder Pain Intensity (Out of 10): 1 % Improvement: 75 Objective/Function: R shoulder ROM: PROM full throughout, mild incerase in symptoms with end range flexion and abd. AROM: R shoulder- flexion 170deg aderrant motion noted, abd 170deg aberrant motion noted, functional ER C6, functional IR L2. MMT: PT. has 4/5 throughout deltiod, ER/IR in mid range 5-/5. biceps and triceps 5/5 throughout. Pt. is doing well overall. He still has some strength limitations with over head motions, but has good strength in mid ranges. We have him working on scapular and deltoid strengtheing I/T/Ys; functional strengthening as well. He has not returned to work yet due to reprots of his work not being able to accomidate his hour restrictions. Goal 1:: Decrease R shoulder pain x 50% to aid with sleep Goal Progress: Goal Met Goal 2:: Increase R shoulder flex and abd ROM x 40 degrees to aid with overhead lifting Goal Progress: Goal Met Goal 3:: Increase R shoulder strength x 1 grade to aid with RTW Goal Progress: Progressing Goal 4:: I with HEP Goal Progress: Goal Met Plan: Pt. would benefit from PT to further work on over head, job related strengthening. I am sending this recommendation and note to his physcian this date. Pt's current C9 is up. I will DC back to physician and if further PT would be determined to be beneficial another script would be necessary. If there are questions or concerns regarding this patient's physical therapy, please feel free to call me at [phone]. Thank you for the referral of this patient. Sincerely, Dmitriy L Sipos, DPT
== END 2020-02-02 19:00 | disposition home or self-care (01) ==
LOC: PT 10:00
PROVIDERS: Family Provider Student in an Organized Health Care Education/Training Program; PCP Student in an Organized Health Care Education/Training Program; Referring Provider Physician Assistant; Visit Provider Physician Assistant
DX: Z98.890 Other specified postprocedural states (principal)
CPT/HCPCS: 97110; 97140; 97161; 97164

== ENCOUNTER 2021-04-07 20:58 | Emergency (ER) | payer OTHER, SELFPAY ==
[2021-04-07 20:59] VITALS: BP 125/82; PULSE 87; RESP 16; TEMP 35.9; O2SAT 98; BMI 31.3
[2021-04-07] MEDS: Lidocaine 1% /Epi 1:100 (20ml) 20 ML Vial 5 ML INFILT (22:03)
--- NOTE | 2021-04-07 22:37 | EX.ED.GENINJ ---
HPI History of Present Illness Chief Complaint: Head Injury Informant: patient and spouse/S.O. Narrative Narrative: Patient had a board fall and hit the back of his head. He is on no blood thinners. He never had nausea vomiting or loss of consciousness. Bleeding was controlled with pressure. He has no real symptoms. He states is a little bit sore the back where it was hit. He does not have a generalized headache. No numbness tingling weakness or gait disturbance. He is acting normally per his . [facility] Medical History (Updated 04/07/21 @ 22:[address] Narinder Roblero MD) Asthma Diabetes GERD (gastroesophageal reflux disease) History of kidney stones HTN (hypertension) Home Medications lisinopril 10 mg PO DAILY 07/19/14 [History Last Taken 09/13/17 08:00] metformin 1,000 mg PO BIDCM 07/19/14 [History Last Taken 07/19/14] cholecalciferol (vitamin D3) 4,000 unit PO DAILY 09/07/17 [History Last Taken 09/13/17 08:00] canagliflozin 300 mg tablet 300 mg PO DAILY 12/08/18 [History Last Taken Unknown] cyclobenzaprine 10 mg tablet 10 mg PO HS PRN #20 tab 12/15/18 [Rx Last Taken Unknown] naproxen 500 mg PO PRN PRN 07/17/19 [History Last Taken Unknown] omeprazole 20 mg PO DAILY 07/17/19 [History Last Taken Unknown] dulaglutide 1.5 mg/0.5 mL subcutaneous pen injector mg SC 08/13/20 [History Last Taken Unknown] insulin glargine 100 unit/mL (3 mL) subcutaneous pen 46 unit SUBCUT QHS ml 08/13/20 [History Last Taken Unknown] Allergy/AdvReac Type Severity Reaction Status Date / Time Vrudmtn-Eie-Gdo Reductase AdvReac Pain in Verified 04/07/21 21:03 Inhibitor joints Family History Other Cancer Surgical History History of hernia repair Social History Smoking Status: Never smoker alcohol intake: never substance use type: does not use what type of physical activity do you participate in: none ROS ROS ED Constitutional Constitutional ED: Denies fever(s) Eyes Eyes: Denies blurry vision or change in vision ENT ENT ED: Denies rhinorrhea Cardiovascular Cardiovascular: Denies chest pain Respiratory/Chest Respiratory/Chest: Denies dyspnea Gastrointestinal Gastrointestinal: Denies nausea or vomiting Integumentary Reports other Details: See HPI Neurologic Neurologic: Denies headache(s), paresthesias or weakness Hematologic/Lymphatic Hematologic/Lymphatic: Denies easy bleeding or easy bruising EXAM Physical Exam Const Vital Signs: 04/07/21 20:59 04/07/21 21:38 Temperature 96.6 F L Temperature Source Temporal Pulse Rate 87 Respiratory Rate 16 Respiratory Effort Normal Non-Labored Respiratory Pattern Normal Blood Pressure 125/82 H Blood Pressure Mean 96 Pulse Ox 98 Oxygen Delivery Method Room Air Positive well nourished and well developed General Appearance ED: well developed and NAD HEENT HEENT Narrative: Patient has a 3 cm laceration on the back of his head. It somewhat jagged and irregular. No notable swelling. No bleeding. No step-off. It looks overall relatively clean. Eyes PERRL and EOMs intact bilaterally Neck full ROM General: Negative for tenderness Chest Wall inspection of chest normal Resp normal respiratory effort Back/Spine normal to inspection; Negative for no thoracic nor lumbar tenderness Extremity normal to inspection and full ROM Neuro oriented x3 Sensorium / Orientation: alert Psych mental status grossly normal Skin General Skin Exam: other See above regarding laceration. MDM MDM MDM Narrative Medical decision making narrative: Procedure: Suture laceration: We discussed options. I do not think this patient needs a CAT scan as there is no loss of consciousness or neurologic finding. No intoxication. The area was scrubbed and draped. It was anesthetized with 4 cc of 1% lidocaine with epinephrine locally. Good anesthesia was achieved. It was further scrubbed and then irrigated till clean. It was sutured with interrupted 5-0 Ethilon with good cosmesis and hemostasis. Patient tolerated the procedure well. Sutures out in 5 to 7 days. Reasons to return given. Discharge Plan Triage Chief Complaint: Head Injury ED Provider: Narinder Roblero Dx/Rx/DC Orders Clinical Impression: Closed head injury, Laceration of scalp Instructions: ED Head Injury (Adult), ED Laceration: All Closures Prescriptions: No Action cyclobenzaprine 10 mg tablet 10 mg PO HS PRN (Reason: muscle spasm) Qty: 20 RF: 0 dulaglutide 1.5 mg/0.5 mL pen injector SC RF: 0 metformin 500 MG tablet 1,000 mg PO BIDCM RF: 0 lisinopril 10 MG tablet 10 mg PO DAILY RF: 0 cholecalciferol (vitamin D3) 2,000 UNIT capsule 4,000 unit PO DAILY RF: 0 canagliflozin 300 mg tablet 300 mg PO DAILY RF: 0 naproxen 500 MG tablet 500 mg PO PRN PRN (Reason: Pain Or Fever) RF: 0 omeprazole 20 MG capsule 20 mg PO DAILY RF: 0 insulin glargine 100 unit/mL (3 mL) insulin pen 46 unit subcut QHS RF: 0 Primary Care Provider: Yong Correa Referrals: Yong Correa DO [Primary Care Provider] - 7 Days for suture removal Disposition Disposition: Home, Self Care
[2021-04-07 23:06] VITALS: RESP 16
== END 2021-04-07 23:09 | disposition home or self-care (01) ==
LOC: ED 22:56
PROVIDERS: Emergency Provider Emergency Medicine; PCP Student in an Organized Health Care Education/Training Program
DX: S01.01XA Laceration without foreign body of scalp, initial encounter (principal); I10 Essential (primary) hypertension; E11.9 Type 2 diabetes mellitus without complications; K21.9 Gastro-esophageal reflux disease without esophagitis; Z87.442 Personal history of urinary calculi; Z79.4 Long term (current) use of insulin; Z79.899 Other long term (current) drug therapy; X58.XXXA Exposure to other specified factors, initial encounter
CPT/HCPCS: 12002; 99284